=== PATIENT | female | born 1990 | race Caucasian/White ===

== ENCOUNTER 2019-02-03 11:36 | Inpatient (IN) | payer MEDICAID ==
[~2019-02-03] VITALS: Ht 160 cm; Wt 78.7 kg
[2019-02-03 12:16] VITALS: Ht 160 cm; Wt 78.7 kg
[2019-02-03 12:17] VITALS: BP 132/92; PULSE 109; RESP 19
[2019-02-03] MEDS: LACTATED RINGER'S 1,000 ML IV SCH (12:24)
[2019-02-03] MEDS ORDERED: MISOPROSTOL 200 MCG TAB PR PRN ×2 (12:30→16:00)
[2019-02-03] MEDS ORDERED: OXYTOCIN 30 UNITS/LR 500 ML IV PRN ×2 (12:30→16:00)
[2019-02-03] MEDS ORDERED: CEFAZOLIN 2 GM/50 ML (PMX) 50 ML IVPB SCH (12:30)
[2019-02-03] MEDS ORDERED: CARBOPROST 250 MCG INJ IM PRN ×2 (12:30→16:00)
[2019-02-03] MEDS ORDERED: METHYLERGONOVINE 0.2 MG INJ IM PRN ×2 (12:30→16:00)
[2019-02-03] MEDS ORDERED: OXYTOCIN 30 UNITS/LR 500 ML IV SCH (12:30)
[2019-02-03] MEDS ORDERED: morphine SULFATE/PF (10 MG/10 ML) INJ ONE (14:44)
[2019-02-03] MEDS ORDERED: EPHEDrine 50 MG INJ ONE (15:00)
[2019-02-03] MEDS ORDERED: OXYTOCIN 10 UNIT INJ ONE ×2 (15:03→15:13)
[2019-02-03] MEDS ORDERED: METOCLOPRAMIDE 10 MG INJ ONE (15:03)
[2019-02-03] MEDS ORDERED: ONDANSETRON 4 MG INJ ONE (15:03)
[2019-02-03] MEDS ORDERED: MIDAZOLAM 1 MG/ML 2 ML INJ ONE (15:07)
[2019-02-03] MEDS ORDERED: LACTATED RINGER'S 1,000 ML IV ONE (15:08)
--- NOTE | 2019-02-03 15:21 | PREAC ---
Date/Time of Note Date/Time of Note DATE: 02/03/19 TIME: 15:15 Anesthesia Eval and Record Evaluation Time Pre-Procedure Interview DATE: 02/03/19 TIME: 14:28 Age 28 Sex female NPO: 8 hrs Preoperative diagnosis iup @ 39 wks., prev. c/s, , contractions, sterilization request Planned procedure repeat c/s, btl Past Medical History Past Medical History: Includes : : (2), Para: (1), Gestational age: (39 wks.) Surgery & Anesthesia Issues No known issue Meds Anticoagulation: No Beta Amy within 24 hr: No Reason Beta Amy not given: Pt. not on B-Amy Current Medications Lactated Ringer's 1,000 ml @ 125 mls/hr Q8H IV Last administered on 02/03/19at 12:24; Admin Dose 125 MLS/HR; Start 02/03/19 at 12:18 Cefazolin Sodium/ Dextrose 50 ml @ 100 mls/hr ONCE IVPB ; Start 02/03/19 at 12:30 Oxytocin/Lactated Ringer's 500 ml @ 125 mls/hr POST IV ; Start 02/03/19 at 12:30 Oxytocin/Lactated Ringer's 500 ml @ 0 mls/hr ONCE PRN IV .VAGINAL BLEEDING; Start 02/03/19 at 12:30 Methylergonovine Maleate (Methergine) 0.2 mg ONCE PRN IM .VAGINAL BLEEDING; Start 02/03/19 at 12:30 Carboprost Tromethamine (Hemabate) 250 mcg ONCE PRN IM .VAGINAL BLEEDING; Start 02/03/19 at 12:30 Misoprostol (Cytotec) 1,000 mcg ONCE PRN [place] .VAGINAL BLEEDING; Start 02/03/19 at 12:30 Meds reviewed: Yes Allergies Coded Allergies: No Known Allergy (Unverified , 02/03/19) Allergies Reviewed: Yes Labs/Studies Labs Reviewed: Reviewed by anesthesiologist Result Diagram: 02/03/19 1210 Laboratory Tests 02/03/19 12:10 Blood Bank Test 02/03/19 13:37 Antibody Screen NEGATIVE Blood Type O POSITIVE Rh Immune Globulin Candidate NO test: Positive Studies: ECG (n/a), CXR (n/a) Pre-procedure Exam Last vitals Vital Signs Date Temp Pulse Resp B/P (MAP) Pulse Ox O2 O2 Flow FiO2 Time Delivery Rate 02/03/19 98.3 109 19 132/92 Room Air 12:17 (105) Airway: Adequate mouth opening, Adequate thyromental dist Mallampati: Mallampati II Teeth: Normal Lung: Normal Heart: Normal ASA Physical Status ASA physical status: 2 Emergency: E Planned Anesthetic General/MAC: TIVA Neuraxial: Spinal Planned Pain Management Sub-arachniod narcotics, Local by surgeon Pre-operative Attestations Prior to commencing anesthesia and surgery, the patient was re-evaluated, there was verification of: *The patient's identity *The results of appropriate recent lab work and preoperative vital signs *The above evaluation not changing prior to induction *Anesthetic plan, risk benefits, alternative and complications discussed with patient/family; questions answered; patient/family understands, accepts and wishes to proceed. Cruller Maker used MERARI ECHEVARRIA MD Feb 03, 2019 15:21
--- NOTE | 2019-02-03 15:27 | OPPN ---
Date/Time of Note Date/Time of Note DATE: 02/04/19 TIME: 00:30 Anesthesia Follow up Anesthesia Follow up Last documented vital signs Vital Signs Date Temp Pulse Resp B/P (MAP) Pulse Ox O2 O2 Flow FiO2 Time Delivery Rate 02/03/19 98.3 109 19 132/92 Room Air 12:17 (105) Respiratory function: WNL Cardiovascular function: WNL Comments S: pt. is pod #1. min. bt pain, min. n/v. min. need for bt pain meds, ie. nsaids/opiates. ambulating. O: vss afeb. A: min. bt pain sec. to it mso4. P: no complications. MERARI ECHEVARRIA MD Feb 03, 2019 15:27
--- NOTE | 2019-02-03 15:28 | PAC ---
Date/Time of Note Date/Time of Note DATE: 02/03/19 TIME: 18:00 Post-Anesthesia Notes Post-Anesthesia Note Last documented vital signs Vital Signs Date Temp Pulse Resp B/P (MAP) Pulse Ox O2 O2 Flow FiO2 Time Delivery Rate 02/03/19 98.3 109 19 132/92 Room Air 12:17 (105) Activity: WNL Respiratory function: WNL Cardiovascular function: WNL Mental status: Baseline Pain reasonably controlled: Yes Hydration appropriate: Yes Nausea/Vomiting absent: Yes MERARI ECHEVARRIA MD Feb 03, 2019 15:28
[2019-02-03] MEDS ORDERED: KETOROLAC 30 MG INJ IV PRN (15:30)
[2019-02-03] MEDS ORDERED: MEPERIDINE 25 MG INJ IV PRN (15:30)
[2019-02-03] MEDS ORDERED: NALOXONE (0.4 MG/ML) INJ IV PRN (15:30)
[2019-02-03] MEDS ORDERED: MIDAZOLAM 1 MG/ML 2 ML INJ IV PRN (15:30)
[2019-02-03] MEDS ORDERED: HYDROmorphONE 0.5 MG/0.5 ML SYG IV PRN ×2 (15:30)
[2019-02-03] MEDS ORDERED: ZOLPIDEM 5 MG TAB PO PRN (15:30)
[2019-02-03] MEDS ORDERED: LORAZEPAM 2 MG INJ IV PRN (15:30)
[2019-02-03] MEDS ORDERED: DIPHENHYDRAMINE 50 MG INJ IV PRN ×2 (15:30)
[2019-02-03] MEDS ORDERED: ONDANSETRON 4 MG INJ IV ONE (15:30)
[2019-02-03] MEDS ORDERED: NALBUPHINE HCL (10 MG/1 ML) INJ IV PRN (15:30)
[2019-02-03] MEDS ORDERED: ONDANSETRON 4 MG INJ IV PRN (15:30)
--- NOTE | 2019-02-03 15:51 | OPPN ---
Date/Time of Note Date/Time of Note DATE: 02/03/19 TIME: 15:49 Operative Report Planned Procedure Procedure date Feb 03, 2019 Procedure(s) REPEAT CSECTION AND BTL Performed by see signature line Retail Performance Specialist: FORREST LALA M.D. 2nd Retail Performance Specialist none Pre-procedure diagnosis 39 WEEKS PREVIOUS CSECTION DESIRES BTL [id number] Anesthesia Type: [id number] spinal Post-Procedure Post-procedure diagnosis 39 WEEKS PREVIOUS CSECTION AND DESIRES BTL Findings Live Baby FIRL, Apgars 9 and 9, weight 6LBS 14OZ Estimated Blood Loss: 500 - 600 mls Specimen(s) none Grafts/Implant(s) PLACENTA BOTH TUBES Complication(s) none FARIDA FERREIRA MD Feb 03, 2019 15:51
[2019-02-03] MEDS ORDERED: LACTATED RINGER'S 1,000 ML IV SCH (15:52)
[2019-02-03] MEDS ORDERED: METHYLERGONOVINE 0.2 MG TAB PO PRN (16:00)
[2019-02-03] MEDS ORDERED: HYDROCODONE/APAP (5/325) TAB PO PRN (16:00)
[2019-02-03] MEDS ORDERED: LANOLIN HPA 1 PKT TOP PRN (16:00)
[2019-02-03] MEDS ORDERED: IBUPROFEN 800 MG TAB PO PRN (16:00)
[2019-02-03 18:10] VITALS: BP 127/78; RESP 18
[2019-02-03] MEDS: OXYTOCIN 30 UNITS/LR 500 ML IV SCH ×2 (18:10→20:11)
[2019-02-03 19:30] VITALS: BP 124/86; PULSE 78; RESP 18
[2019-02-03] MEDS: SENNA/DOCUSATE NA (8.6MG/50MG) TAB PO SCH (20:12)
[2019-02-04] VITALS: BP 114/71; PULSE 88; RESP 20
[2019-02-04 04:00] VITALS: BP 102/65; PULSE 86; RESP 20
[2019-02-04] MEDS: LACTATED RINGER'S 1,000 ML IV SCH ×4 (04:43→18:13)
[2019-02-04 07:20] VITALS: BP 124/86; PULSE 78; RESP 20
[2019-02-04] MEDS: SENNA/DOCUSATE NA (8.6MG/50MG) TAB PO SCH ×2 (09:00→21:00)
[2019-02-04 11:26] VITALS: BP 97/56; PULSE 74; RESP 20
--- NOTE | 2019-02-04 16:59 | OPR ---
DATE OF OPERATION: 02/03/2019 PREOPERATIVE DIAGNOSES: 1. A 39 and 1/7 weeks' intrauterine . 2. One previous section. 3. Multiparity. 4. The patient desires section and sterilization. POSTOPERATIVE DIAGNOSES: 1. A 39 and 1/7 weeks' intrauterine . 2. One previous section. 3. Multiparity. 4. The patient desires section and sterilization. 5. Severe pelvic and abdominal adhesions. SURGEON: Farida Howard MD UNDERCOLLAR MAKER: Hans Cary MD ANESTHESIA: Spinal. ANESTHESIOLOGIST: Kenji Chavez MD OPERATIONS PERFORMED: Repeat low transverse section plus bilateral tubal ligation and trans ection and lysis of severe pelvic and abdominal adhesions. OPERATIVE TECHNIQUE: Under spinal anesthesia, the patient was prepped and draped in the usual fasmio n for abdominal surgery. After checking for the effect of anesthesia, the previous Pfannenstiel scar was excised. A 12 cm skin incision was performed. The incision was carried from the skin up to the fascia. Upon opening the skin up to the fascia, small blood vessels were noted to be oozing and the se were all cauterized. Fascia was opened transversely followed by splitting muscles vertical and th e peritoneum vertically. Upon opening the abdominal cavity, the omentum was noted to be attached to the anterior parietal peritoneum. All these adhesions were lysed by sharp and blunt dissection. The mid portion of the uterus was attached to the anterior parietal peritoneum as well. All these adhes ions were lysed by sharp and blunt dissection. The bladder blade was put in place. A small willie was performed from the serosa up to the endometrium on the lower uterine segment and the willie was donna d sideways with the aid of my 2 fingers. My left hand was inserted in lower segment of the uterus an d the bag of water was ruptured. Clear fluid was noted. Baby's head was delivered with good fundal pressure and baby was quickly suctioned with amniotic fluid. Then, the anterior shoulder, posterior shoulder and rest of the body of the baby were delivered. One loop of cord around the baby's neck wa s noted that needs to be released prior to the delivery of the rest of the body of the baby. Then, a s mentioned, cord was clamped after 30 seconds and cord blood was obtained. Baby was handed to the ICU team. The placenta was delivered manually and complete. The uterus was exteriorized. The uteru s was cleansed with wet lap sponge to make sure that no membranes were left behind. After maggy ect sponge count, the uterus was closed in the usual fashion using #1 chromic for the first layer, co ntinuous locking suture was used followed by #1 chromic for the second layer, imbricating sutures wer e used. Bleeders were checked and there was no bleeding noted. After checking for any bleeders in [facility] there were none, both tubes and ovaries were inspected. They were healthy looking. The right t ube was grasped on the center where the avascular area was. A 1 cm tube was stick tied at the proxim al and distal portions with 2-0 silk stick tie with 2-0 chromic above the first silk tie and another free tie with 2-0 chromic above the second tie. The right tube was cut and the cut ends were cauteri zed. The right fimbria was identified. Same thing was done on the left side. Left fimbria was iden tified. A 1 cm tube was transected as well. Both tubes and both ovaries as noted were identified. Broad ligament was checked for any hematoma and there was none noted. The uterus was put back to the pelvic cavity. Once again, uterine incision was checked for any bleeders and there was no bleeding noted. After correct sponge count, needle count and instrument count as confirmed by the test cell technician and film developer, the abdomen was closed in the usual fashion using 0 Vicryl for the peritoneum, 0 Vicr yl for the muscles, for the fascia 0 Vicryl continuous stitch was used followed by few nimlpa-eh-glaf t suture, for the subcutaneous tissue, it was closed with 3-0 Vicryl and the skin was closed with 3-0 Vicryl, subcuticular suture was used. The patient tolerated the procedure well. Estimated blood lo ss was about 600 mL. Vital signs were stable during and after the procedure. She delivered a health y baby girl on 02/03/2019 at 15:05, weighing 6 pounds, 14 ounces, 3110 grams, 19 inches long, 9 and 9 with cord around the neck x1 that needs to be released prior to the delivery of the rest of th e body of the baby. Dictated By: FARIDA CARVALHO/MAYANK Conf#: [id number] DID#: [id number]
[2019-02-04 17:26] VITALS: BP 106/73; PULSE 105; RESP 22
--- NOTE | 2019-02-04 17:42 | PN ---
Date/Time of Note Date/Time of Note DATE: 02/04/19 TIME: 17:41 Assessment/Plan VTE Prophylaxis Risk score (from Ns)>0 risk: 2 SCD applied (from Ns): Yes Pharmacological prophylaxis: NA/contraindicated Pharm contraindication: low risk/ambulating Lines/Catheters IV Catheter Type (from Nrs): Peripheral IV Assessment/Plan Assessment/Plan POSTCSECTION DAY 1 ORDERED ADVANCE DIET TOLERATED CBC ON 3RD POSTOP DAY Result Diagram: 02/04/19 0735 02/04/19 0735 Results 24hrs Laboratory Tests Test 02/04/19 07:35 White Blood Count 11.9 #H Red Blood Count 4.25 Hemoglobin 12.2 Hematocrit 36.8 L Mean Corpuscular Volume 86.6 Mean Corpuscular Hemoglobin 28.7 L Mean Corpuscular Hemoglobin Concent 33.2 Red Cell Distribution Width 13.7 Platelet Count 146 Mean Platelet Volume 12.0 H Immature Granulocytes % 0.500 H Neutrophils % 85.0 H Lymphocytes % 9.1 L Monocytes % 5.0 Eosinophils % 0.1 Basophils % 0.3 Nucleated Red Blood Cells % 0.0 Immature Granulocytes # 0.060 H Neutrophils # 10.1 H Lymphocytes # 1.1 Monocytes # 0.6 Eosinophils # 0.0 Basophils # 0.0 Nucleated Red Blood Cells # 0.0 Sodium Level 136 Potassium Level 4.1 Chloride Level 100 Carbon Dioxide Level 26 Anion Gap 10 Blood Urea Nitrogen 7 Creatinine 0.57 Est Glomerular Filtrat Rate mL/min > 60 Glucose Level 77 Calcium Level 8.7 Subjective 24 Hr Interval Summary Free Text/Dictation POST CSECTION DAY 1 COMPLAIN OF INCISIONAL PAINS GOOD URINE OUTPUT PASSING GAS PER RECTUM NO BOWEL MOVEMENT YET Exam/Review of Systems Exam Vitals Vital Signs Date Temp Pulse Resp B/P (MAP) Pulse Ox O2 O2 Flow FiO2 Time Delivery Rate 02/04/19 98.7 105 22 106/73 98 Room Air 17:26 (84) Intake and Output 02/03/19 02/03/19 02/04/19 1515:00 23:00 07:00 IntakeIntake Total 572 ml 850 ml OutputOutput Total 850 ml BalanceBalance 572 ml 0 ml Exam VITAL SIGNS STABLE: YES AFEBRILE: YES BREAST NOT ENGORGED, NON-TENDER, NO APPRECIABLE MASS: YES LUNGS CLEAR, NO RALES, WHEEZES, RHONCHI: YES SINUS RHYTHM WITHOUT MURMUR: YES ABDOMEN: NON-TENDER FUNDUS: BELOW UMBILICUS BOWEL SOUNDS: PRESENT UTERUS: FIRM INCISION (CLEAN, DRY, AND INTACT): YES LOCHIA: LIGHT DEEP TENDON REFLEXES: 0 EXTREMITIES: NO CALF TENDERNESS EDEMA SCALE: NONE Results Results 24hrs Laboratory Tests Test 02/04/19 07:35 White Blood Count 11.9 #H Red Blood Count 4.25 Hemoglobin 12.2 Hematocrit 36.8 L Mean Corpuscular Volume 86.6 Mean Corpuscular Hemoglobin 28.7 L Mean Corpuscular Hemoglobin Concent 33.2 Red Cell Distribution Width 13.7 Platelet Count 146 Mean Platelet Volume 12.0 H Immature Granulocytes % 0.500 H Neutrophils % 85.0 H Lymphocytes % 9.1 L Monocytes % 5.0 Eosinophils % 0.1 Basophils % 0.3 Nucleated Red Blood Cells % 0.0 Immature Granulocytes # 0.060 H Neutrophils # 10.1 H Lymphocytes # 1.1 Monocytes # 0.6 Eosinophils # 0.0 Basophils # 0.0 Nucleated Red Blood Cells # 0.0 Sodium Level 136 Potassium Level 4.1 Chloride Level 100 Carbon Dioxide Level 26 Anion Gap 10 Blood Urea Nitrogen 7 Creatinine 0.57 Est Glomerular Filtrat Rate mL/min > 60 Glucose Level 77 Calcium Level 8.7 Medications Medication Current Medications Lactated Ringer's 1,000 ml @ 125 mls/hr Q8H IV Last administered on 02/04/19at 12:22; Admin Dose 125 MLS/HR; Start 02/03/19 at 12:18 Cefazolin Sodium/ Dextrose 50 ml @ 100 mls/hr ONCE IVPB ; Start 02/03/19 at 12:30 Oxytocin/Lactated Ringer's 500 ml @ 125 mls/hr POST IV Last administered on 02/03/19at 16:16; Admin Dose 125 MLS/HR; Start 02/03/19 at 12:30 Miscellaneous Information (* Miscellaneous Pharmacy Order) Duramorph: 0.2 mg Spi... GIVEN XX ; Start 02/03/19 at 15:30 Methylergonovine Maleate (Methergine) 0.2 mg Q6H PRN PO .VAGINAL BLEEDING; Start 02/03/19 at 16:00 Acetaminophen/ Hydrocodone Bitart ([place] (5/325)) 1 tab Q4H PRN PO .PAIN 4-6; Start 02/03/19 at 16:00 Acetaminophen/ Hydrocodone Bitart ([place] (5/325)) 2 tab Q4H PRN PO .PAIN 7-10; Start 02/03/19 at 16:00 Simethicone (Mylicon) 160 mg Q8H PRN PO .GAS; Start 02/03/19 at 16:00 Senna/Docusate Sodium (Senokot-S) 1 tab BID PO Last administered on 02/03/19at 20:12; Admin Dose 1 TAB; Start 02/03/19 at 21:00 Lanolin (Lanolin Hpa) 1 applic BEDSIDE MEDICATION PRN TOP .NIPPLES; Start 02/03/19 at 16:00 Diphtheria/ Tetanus/Acell Pertussis (Adacel) 0.5 ml ONCE ONCE IM* ; Start 02/06/19 at 09:00; Stop 02/06/19 at 09:01 Measles/Mumps/ Rubella Vaccine Live (Mmr Ii Vaccine) 0.5 ml ONCE ONCE SC* ; Start 02/06/19 at 09:00; Stop 02/06/19 at 09:01 Oxytocin/Lactated Ringer's 500 ml @ 0 mls/hr ONCE PRN IV .VAGINAL BLEEDING; Start 02/03/19 at 16:00 Methylergonovine Maleate (Methergine) 0.2 mg ONCE PRN IM .VAGINAL BLEEDING; Start 02/03/19 at 16:00 Carboprost Tromethamine (Hemabate) 250 mcg ONCE PRN IM .VAGINAL BLEEDING; Start 02/03/19 at 16:00 Misoprostol (Cytotec) 1,000 mcg ONCE PRN [place] .VAGINAL BLEEDING; Start 02/03/19 at 16:00 Ibuprofen (Motrin) 800 mg Q8H PRN PO MILD PAIN LEVEL 1-3; Start 02/04/19 at 15:00 FARIDA FERREIRA MD Feb 04, 2019 17:42
[2019-02-04 19:45] VITALS: BP 111/71; PULSE 109; RESP 18
[2019-02-04] MEDS: IBUPROFEN 800 MG TAB PO PRN (23:39)
[2019-02-05] MEDS: HYDROCODONE/APAP (5/325) TAB PO PRN ×3 (01:55→15:12)
[2019-02-05] MEDS: LACTATED RINGER'S 1,000 ML IV SCH ×3 (04:18→16:49)
[2019-02-05 05:15] VITALS: BP 102/70; PULSE 89; RESP 18
[2019-02-05] MEDS: SENNA/DOCUSATE NA (8.6MG/50MG) TAB PO SCH ×2 (08:27→21:00)
[2019-02-05 09:00] VITALS: BP 112/69; PULSE 100; RESP 18
[2019-02-05] MEDS: IBUPROFEN 800 MG TAB PO PRN ×2 (12:46→21:15)
[2019-02-05 15:50] VITALS: BP 108/67; PULSE 95; RESP 18
[2019-02-05 19:20] VITALS: BP 117/78; PULSE 94; RESP 18
--- NOTE | 2019-02-05 19:59 | PN ---
Date/Time of Note Date/Time of Note DATE: 02/05/19 TIME: 19:58 Assessment/Plan VTE Prophylaxis Risk score (from Nsg)>0 risk: 1 SCD applied (from Nsg): No SCD contraindicated: low risk/ambulating Pharmacological prophylaxis: NA/contraindicated Pharm contraindication: low risk/ambulating Lines/Catheters IV Catheter Type (from Nrsg): Peripheral IV Assessment/Plan Assessment/Plan POST CSECTION DAY 2 HOME TOMORROW CBC TOMORROW COUNSELED INSTRUCTED PRESCRIPTION GIVEN FOR PAIN RETURN TO CLINIC IN 2 WEEKS CALL OFFICE IF THERE IS ANY PROBLEM OR CONCERN CONTINUE WITH VITAMINS OD AND FERROUS SULFATE 325MG PO TID DIET ADVISED Result Diagram: 02/04/19 0735 02/04/19 0735 Results 24hrs Laboratory Tests Test 02/05/19 06:57 Lab Scanned Report REFERENCE LAB Subjective 24 Hr Interval Summary Free Text/Dictation POST CSECTION DAY 2 LITTLE BOWEL MOVEMENT GOOD URINE OUTPUT FEELS LESS INCISIONAL PAINS Exam/Review of Systems Exam Vitals Vital Signs Date Temp Pulse Resp B/P (MAP) Pulse Ox O2 O2 Flow FiO2 Time Delivery Rate 02/05/19 99.2 95 18 108/67 15:50 (81) 02/05/19 Room Air 09:00 02/04/19 98 17:26 Intake and Output 02/04/19 02/04/19 02/05/19 1414:59 22:59 06:59 IntakeIntake Total 875 ml 250 ml OutputOutput Total 2200 ml 400 ml 500 ml BalanceBalance -1325 ml -150 ml -500 ml Exam VITAL SIGNS STABLE: YES AFEBRILE: YES BREAST NOT ENGORGED, NON-TENDER, NO APPRECIABLE MASS: YES LUNGS CLEAR, NO RALES, WHEEZES, RHONCHI: YES SINUS RHYTHM WITHOUT MURMUR: YES ABDOMEN: NON-TENDER FUNDUS: BELOW UMBILICUS BOWEL SOUNDS: PRESENT UTERUS: FIRM INCISION (CLEAN, DRY, AND INTACT): YES LOCHIA: LIGHT DEEP TENDON REFLEXES: 0 EXTREMITIES: NO CALF TENDERNESS EDEMA SCALE: NONE Results Results 24hrs Laboratory Tests Test 02/05/19 06:57 Lab Scanned Report REFERENCE LAB Medications Medication Current Medications Lactated Ringer's 1,000 ml @ 125 mls/hr Q8H IV Last administered on 02/04/19at 12:22; Admin Dose 125 MLS/HR; Start 02/03/19 at 12:18 Cefazolin Sodium/ Dextrose 50 ml @ 100 mls/hr ONCE IVPB ; Start 02/03/19 at 12:30 Oxytocin/Lactated Ringer's 500 ml @ 125 mls/hr POST IV Last administered on 02/03/19at 16:16; Admin Dose 125 MLS/HR; Start 02/03/19 at 12:30 Miscellaneous Information (* Miscellaneous Pharmacy Order) Duramorph: 0.2 mg Spi... GIVEN XX ; Start 02/03/19 at 15:30 Methylergonovine Maleate (Methergine) 0.2 mg Q6H PRN PO .VAGINAL BLEEDING; Start 02/03/19 at 16:00 Acetaminophen/ Hydrocodone Bitart ([place] (5/325)) 1 tab Q4H PRN PO .PAIN 4-6 Last administered on 02/05/19at 15:12; Admin Dose 1 TAB; Start 02/03/19 at 16:00 Acetaminophen/ Hydrocodone Bitart ([place] (5/325)) 2 tab Q4H PRN PO .PAIN 7-10; Start 02/03/19 at 16:00 Simethicone (Mylicon) 160 mg Q8H PRN PO .GAS; Start 02/03/19 at 16:00 Senna/Docusate Sodium (Senokot-S) 1 tab BID PO Last administered on 02/05/19at 08:27; Admin Dose 1 TAB; Start 02/03/19 at 21:00 Lanolin (Lanolin Hpa) 1 applic BEDSIDE MEDICATION PRN TOP .NIPPLES; Start 02/03/19 at 16:00 Diphtheria/ Tetanus/Acell Pertussis (Adacel) 0.5 ml ONCE ONCE IM* ; Start 02/06/19 at 09:00; Stop 02/06/19 at 09:01 Measles/Mumps/ Rubella Vaccine Live (Mmr Ii Vaccine) 0.5 ml ONCE ONCE SC* ; Start 02/06/19 at 09:00; Stop 02/06/19 at 09:01 Oxytocin/Lactated Ringer's 500 ml @ 0 mls/hr ONCE PRN IV .VAGINAL BLEEDING; Start 02/03/19 at 16:00 Methylergonovine Maleate (Methergine) 0.2 mg ONCE PRN IM .VAGINAL BLEEDING; Start 02/03/19 at 16:00 Carboprost Tromethamine (Hemabate) 250 mcg ONCE PRN IM .VAGINAL BLEEDING; Start 02/03/19 at 16:00 Misoprostol (Cytotec) 1,000 mcg ONCE PRN [place] .VAGINAL BLEEDING; Start 02/03/19 at 16:00 Ibuprofen (Motrin) 800 mg Q8H PRN PO MILD PAIN LEVEL 1-3 Last administered on 02/05/19at 12:46; Admin Dose 800 MG; Start 02/04/19 at 15:00 FARIDA FERREIRA MD Feb 05, 2019 19:59
[2019-02-06] MEDS: HYDROCODONE/APAP (5/325) TAB PO PRN (02:53)
[2019-02-06 03:30] VITALS: BP 121/86; PULSE 59; RESP 18
[2019-02-06] MEDS: LACTATED RINGER'S 1,000 ML IV SCH (04:18)
[2019-02-06] MEDS: IBUPROFEN 800 MG TAB PO PRN (05:28)
[2019-02-06 08:00] VITALS: BP 107/77; PULSE 70; RESP 18
[2019-02-06] MEDS ORDERED: DIPHTH/TET/ACEL PERTUSS (ADULT) 0.5 ML VIAL IM* ONE (09:00)
[2019-02-06] MEDS ORDERED: MEASLES,MUMPS,RUBELLA VACCINE INJ SC* ONE (09:00)
[2019-02-06] MEDS: SENNA/DOCUSATE NA (8.6MG/50MG) TAB PO SCH (09:00)
--- NOTE | 2019-02-06 12:16 | PREOPHP ---
DATE OF ADMISSION: 02/03/2019 HISTORY OF PRESENT ILLNESS: This is a 28-year-old lady, 2, para 1, EDC 02/09/2019. This is a 39-1/7 weeks, admitted to labor and delivery area for repeat and tubal ligation. This pa tient desires to have sterilization. She had 1 , and she had refused to have . She wan ila to have repeat and tubal ligation. The procedures were explained to the patient and mahsa barber understood everything totally. The risks, benefits and alternatives were discussed with her as sunita hutchins. PAST PERSONAL HISTORY: No history of TB, asthma. ALLERGIES: No allergies. SOCIAL HISTORY: Patient does not smoke. She does not drink. MEDICATIONS: She does not take any drugs except her iron and vitamins. GYNECOLOGIC HISTORY: She had menarche at the age of 10, every 28 days interval, 3 to 4 days duration , and moderate in amount. FAMILY HISTORY: Mother has diabetes and hypertension. She is 2, para 1. First delivery was in 2009 by . REVIEW OF SYSTEMS: CARDIOVASCULAR: No chest pains. RESPIRATORY: No cough. GASTROINTESTINAL: No diarrhea, no vomiting. GENITOURINARY: No dysuria. PHYSICAL EXAMINATION: GENERAL: Reveals a conscious, coherent lady and in no acute distress. VITAL SIGNS: Her blood pressure 120/80, pulse rate 80 per minute, respirations 16 per minute. BREASTS, HEART AND LUNGS: Within normal limits. ABDOMEN: Soft. No organomegaly. Fundic height 30 cm. heart tones 140 per minute. PELVIC: Revealed the cervix to be 2 cm dilatation, station floating in cephalic presentation with th e bag of edmondson intact. EXTREMITIES: No pedal edema. ADMITTING DIAGNOSIS: A 39 and 1/7 weeks intrauterine with previous section and mu ltiparity. The patient discharged . PLAN: The patient was planned to have the above procedure. The risks, benefits and alternatives maynor e discussed with her as well. Dictated By: FARIDA CARVALHO/MAYANK Conf#: [id number] DID#: [id number]
--- NOTE | 2019-02-07 16:05 | DELSUM ---
Delivery Summary A-C Datetime Report Generated by CPN: 02/07/2019 16:05 DELIVERY PERSONNEL Telehealth Director: Duvo, Tasha MATERNAL INFORMATION Delivery Anesthesia: Spinal Medications in Delivery: SEE ANESTHESIA NOTES Delivery QBL (ml): 700 Placenta Cultured: No Maternal Complications: None LABOR SUMMARY EDC: 02/02/2019 00:00 No. Babies in Womb: 1 Attempted: No Labor Anesthesia: None LABOR INFORMATION Reason for Induction: Not Applicable Oxytocin: N/A Group B Beta Strep: Negative Antibiotics # of Doses: 1 Steroids Given: None Reason Steroids Not Administered: Not Applicable MEMBRANES Membranes Rupture Method: Artificial Rupture of Membranes: 02/03/2019 15:04 Length of Rupture (hr): 0.02 Amniotic Fluid Color: Clear Amniotic Fluid Amount: Moderate Amniotic Fluid Odor: None STAGES OF LABOR Stage 3 hr: 0 Stage 3 min: 1 CSECTION DELIVERY Primary Indication: Repeat Elective Secondary Indication: N/A CSection Urgency: Elective CSection Incidence: Repeat Labor: No Labor Elective: Elective CSection Incision: Lower Uterine Transverse Sterilization Procedure: Tam BABY A INFORMATION Delivery Date/Time: 02/03/2019 15:05 Method of Delivery: Born in Route : No : N/A Forceps: N/A Vacuum Extraction: N/A Shoulder Dystocia : N/A SHOULDER DYSTOCIA BABY A Infant Delivery Date/Time: 02/03/2019 15:05 PRESENTATION/POSITION BABY A Presentation: Cephalic Cephalic Presentation: Vertex Vertex Position: Left Occipital Anterior Breech Presentation: N/A PLACENTA INFORMATION BABY A Placenta Delivery Time : 02/03/2019 15:06 Placenta Method of Delivery: Manual Removal Placenta Status: Delivered SCORES BABY A Heart Rate 1 min: >100 bpm Resp Effort 1 min: Good Cry Reflex Irritability 1 min: Cough/Sneeze/Pulls Away Muscle Tone 1 min: Active Motion Color 1 min: Body [place], Extremit Blue Resuscitation Effort 1 min: Tactile Stimulation SCORE 1 MIN: 9 Heart Rate 5 min: >100 bpm Resp Effort 5 min: Good Cry Reflex Irritability 5 min: Cough/Sneeze/Pulls Away Muscle Tone 5 min: Active Motion Color 5 min: Body [place], Extremit Blue Resuscitation Effort 5 min: Tactile Stimulation SCORE 5 MIN: 9 INFANT INFORMATION BABY A Gestational Age at Delivery: 40.1 Gestational Status: Full Term- 39- 40.6 Weeks Outcome : Liveborn Infant Condition : Stable Infant Sex: Female IDENTIFICATION/MEDS BABY A ID Band Number: [id number] ID Band Location: Right Leg; Left Arm Sensor Applied: Yes Sensor Number: [id number] Sensor Location : Cord Clamp Vitamin K Given : Not Given Erythromycin Given: Not Given WEIGHT/LENGTH BABY A Birthweight (gm): 3110 Weight (lb): 6 Infant Weight (oz): 14 Length (in): 19.00 Length (cm): 48.26 CORD INFORMATION BABY A No. Cord Vessels: 3 Nuchal Cord : Around Neck x1, Loose Cord Blood Taken: Yes Infant Suction: Mouth; Nose ASSESSMENT BABY A Infant Complications: None Physical Findings at Delivery: Within Normal Limits Infant Respirations: Appears Normal Mine Car Repairer/ALS Called : Yes Care By: Emily TYSON RN Transferred To: Remains with Mother
--- NOTE | 2019-02-10 02:43 | DS ---
DATE OF ADMISSION: 02/03/2019 DATE OF DISCHARGE: 02/06/2019 This is a 28-year-old lady, 2, para 1, EDC of 02/09/2019 at 39 and 1/7 weeks, admitted for re peat and tubal ligation. HISTORY OF PRESENT ILLNESS: See dictated history and physical. PHYSICAL EXAMINATION: See dictated history and physical. ADMITTING DIAGNOSIS: A 39 and 1/7 weeks intrauterine with previous section and mu ltiparity. HOSPITAL COURSE: The patient underwent a repeat , plus tubal ligation and lysis of severe p elvic and abdominal adhesions on 02/03/2019. She tolerated the procedure well. She did have good po stoperative course. The diet was advanced from liquid to general diet. She had good bowel movement postoperatively. She has less pain on the third postoperative day. She was discharged home in good and stable condition on general diet and activity was restricted. She was counseled. She was instru cted. She was given prescription for pain. Hematocrit on discharge was 36.1 and hemoglobin was 11.9 . FINAL DIAGNOSES: A 39 and 1/7 weeks intrauterine with previous section, multipari ty and delivered and severe pelvic and abdominal adhesions. Dictated By: FARIDA CARVALHO/MAYANK Conf#: [id number] DID#: [id number]
== END 2019-02-06 16:05 | disposition home or self-care (01) | DRG 785 ==
LOC: L-D 11:36 → PP1 18:30
PROVIDERS: ADMIT Obstetrics & Gynecology; ATTEND Obstetrics & Gynecology
PROC: 0UB70ZZ Excision of Bilateral Fallopian Tubes, Open Approach (ICD-10-PCS; 2019-02-03)
PROC: 0DNU0ZZ Release Omentum, Open Approach (ICD-10-PCS; 2019-02-03)
PROC: 0UN90ZZ Release Uterus, Open Approach (ICD-10-PCS; 2019-02-03)
PROC: 0HB7XZZ Excision of Abdomen Skin, External Approach (ICD-10-PCS; 2019-02-03)
PROC: 10D00Z1 Extraction of Products of Conception, Low, Open Approach (ICD-10-PCS; principal; 2019-02-03 14:00)
DX: O34.211 Maternal care for low transverse scar from previous cesarean delivery (principal); O99.89 Other specified diseases and conditions complicating pregnancy, childbirth and the puerperium; N73.6 Female pelvic peritoneal adhesions (postinfective); O69.81X0 Labor and delivery complicated by cord around neck, without compression, not applicable or unspecified; Z3A.39 39 weeks gestation of pregnancy; Z37.0 Single live birth; Z30.2 Encounter for sterilization; Z23 Encounter for immunization
CPT/HCPCS: 80048; 85025; 85610; 85730; 86592; 86850; 86900; 86901; 87340; 88302; 90715; 99464; J0690; J1885; J2250; J2274; J2405; J2590; J2765; J7120